=== PATIENT | male | born 1965 | race Caucasian/White ===

== ENCOUNTER 2016-12-08 11:06 | Emergency (ER) | payer OTHER ==
[2016-12-08 12:45] LABS: SPECIFIC GRAVITY 1.005 (1.001-1.030); URINE BILIRUBIN NEGATIVE (NEGATIVE); URINE BLOOD NEGATIVE (NEGATIVE); URINE GLUCOSE (UA) NEGATIVE (NEGATIVE); URINE LEUKOCYTE ESTERASE NEGATIVE (NEGATIVE); URINE NITRITE NEGATIVE (NEGATIVE); URINE PROTEIN NEGATIVE (NEGATIVE); URINE UROBILINOGEN NORMAL (0-1 mg/dl)
[2016-12-08 12:46] LABS: URINE APPEARANCE CLEAR; URINE COLOR YELLOW
== END 2016-12-08 14:11 | disposition home or self-care (01) ==
LOC: ED 11:06
DX: R33.9 Retention of urine, unspecified (principal)